=== PATIENT | male | born 2000 | race Caucasian/White ===

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

== ENCOUNTER 2021-07-18 08:18 | Emergency (ER) | payer OTHER ==
[2021-07-18] MEDS ORDERED: NAPROXEN500 MG PO (10:31)
[2021-07-18] MEDS ORDERED: MEDROL 4MG DOSEP4 MG PO (10:31)
[2021-07-18] MEDS ORDERED: VENTOLIN HFA18 GM INH (10:31)
[2021-07-18] MEDS ORDERED: TESSALON PERLE100 M1 PO (10:31)
[2021-07-18] MEDS ORDERED: PHENERGAN25 M1 PO (10:31)
== END 2021-07-18 10:50 | disposition home or self-care (01) ==
LOC: FER 08:18
DX: U07.1 COVID-19 (principal); I10 Essential (primary) hypertension; F17.200 Nicotine dependence, unspecified, uncomplicated
CPT/HCPCS: 99284